=== PATIENT | female | born 1960 | race Hispanic/Latino ===

== ENCOUNTER 2023-05-29 07:35 | Emergency (ER) | payer OTHER ==
[2023-05-29] MEDS ORDERED: Ipratropium Bromide 2.5 ml Neb ONE (08:37)
[2023-05-29] MEDS ORDERED: Albuterol 2.5 MG/0.5 ML NEB ONE (08:37)
[2023-05-29] MEDS ORDERED: Sodium Chloride 0.9% 100 ML ONE (08:38)
[2023-05-29] MEDS ORDERED: Cefepime 2 GM VIAL ONE (08:38)
[2023-05-29] MEDS ORDERED: Dexamethasone 10 MG/ML VIAL ONE (08:38)
[2023-05-29 09:08] LABS: #Basophils 0.1 thou/uL (0.0-0.2); #Eosinphils 1.1 thou/uL (0.0-0.7); #Monocytes 0.7 thou/uL (0.11-0.59); #Neutrophils 3.7 thou/uL (1.40-6.50); %Basophils 1.3 % (0.0-1.0); %Eosinophils 14.1 % (0.0-10.0); %Lymphocytes 29.3 % (21.0-51.0); %Monocytes 8.4 % (0.0-10.0); %Neutrophils 46.8 % (42.0-75.0); Hematocrit 36.9 % (36.0-47.0); Hemoglobin 12.6 g/dL (12.0-16.0); Mean Corpuscular HGB CONC 34.1 g/dL (32.0-36.0); Mean Corpuscular Hemoglobin 29.4 pg (27.0-31.0); Mean Corpuscular Volume 86.2 fl (78.0-98.0); Mean Platelet Volume 10.7 fL (7.4-10.4); Platelet Count 317 10x3/uL (130-400); RBC Distribution Width 12.8 % (11.5-14.5); Red Blood Cell (RBC) Count 4.28 mill/uL (4.20-5.40); White Blood Cell (WBC) Count 7.9 10x3/uL (4.8-10.8)
[2023-05-29 09:41] LABS: ALT (SGPT) 11 U/L (8-55); AST (SGOT) 10 U/L (5-34); Albumin 4.4 g/dL (3.4-4.8); Alkaline Phosphatase 104 U/L (40-110); Anion Gap 16 mmol/L (10-20); BUN (Urea Nitrogen) 10 mg/dL (9.8-20.1); Bilirubin, Total 0.5 mg/dL (0.2-1.2); Calc. Creatinine Clearance 0 mL/min (70-130); Calcium 9.3 mg/dL (7.8-10.44); Carbon Dioxide 22 mmol/L (23-31); Chloride 104 mmol/L (98-107); Estimated GFR 80; Globulin 3.2 g/dL (2.4-3.5); Glucose 273 mg/dL (80-115); Potassium 3.9 mmol/L (3.5-5.1); Protein, Total 7.6 g/dL (5.8-8.1); Sodium 138 mmol/L (136-145)
== END 2023-05-29 10:20 | disposition home or self-care (01) ==
LOC: ERS 07:35
DX: J18.9 Pneumonia, unspecified organism (principal); E11.9 Type 2 diabetes mellitus without complications
CPT/HCPCS: 71045; 80053; 83605; 85025; 96365; 96375; J0692; J1100; J3490; J7611

== ENCOUNTER 2024-05-19 06:14 | Observation (INO) | payer OTHER ==
[2024-05-19 07:07] LABS: #Basophils 0.07 10x3/uL (0.0-0.2); %Basophils 0.7 % (0.0-1.0); %Eosinophils 4.4 % (0.0-10.0); %Lymphocytes 38.8 % (21.0-51.0); %Monocytes 8.2 % (0.0-10.0); %Neutrophils 47.6 % (42.0-75.0); Hematocrit 36.2 % (36.0-47.0); Hemoglobin 12.3 g/dL (12.0-16.0); Mean Corpuscular Hemoglobin 29.6 pg (27.0-31.0); Mean Platelet Volume 10.1 fL (7.4-10.4); Platelet Count 315 10x3/uL (130-400); RBC Distribution Width 12.9 % (11.5-14.5); Red Blood Cell (RBC) Count 4.16 mill/uL (4.20-5.40)
[2024-05-19 07:22] LABS: ALT (SGPT) 11 U/L (8-55); AST (SGOT) 10 U/L (5-34); Albumin 3.7 g/dL (3.4-4.8); Alkaline Phosphatase 115 U/L (40-110); Anion Gap 12 mmol/L (10-20); BUN (Urea Nitrogen) 12 mg/dL (9.8-20.1); Bilirubin, Total 0.3 mg/dL (0.2-1.2); Calc. Creatinine Clearance 0 mL/min (70-130); Calcium 9.1 mg/dL (7.8-10.44); Carbon Dioxide 23 mmol/L (23-31); Chloride 108 mmol/L (98-107); Estimated GFR 91; Globulin 3.7 g/dL (2.4-3.5); Glucose 204 mg/dL (80-115); Potassium 4.1 mmol/L (3.5-5.1); Protein, Total 7.4 g/dL (5.8-8.1); Sodium 139 mmol/L (136-145)
[2024-05-19 07:24] LABS: INR-International Normal Ratio 0.9; Prothrombin Time 12.1 sec (12.0-14.7)
[2024-05-19 07:25] LABS: PTT 35.7 sec (22.9-36.1)
[2024-05-19 07:26] LABS: Troponin I Less than 0.010 ng/mL (< 0.028)
[2024-05-19] MEDS ORDERED: Ondansetron PF 4 MG/2 ML Vial IVP PRN (08:27)
[2024-05-19] MEDS ORDERED: Senokot S 8.6-50 MG TAB PO PRN (08:27)
[2024-05-19] MEDS ORDERED: Aspirin Chewable 81 MG TAB ONE (08:33)
[2024-05-19] MEDS ORDERED: Dextrose 5% in Water 1,000 ML IV PRN (08:39)
[2024-05-19] MEDS ORDERED: Dextrose 50% Abboject 50 ML SYRINGE SLOW IVP PRN (08:39)
[2024-05-19] MEDS ORDERED: Glucagon 1 MG/ML KIT IM PRN (08:39)
[2024-05-19 10:28] VITALS: BMI 32.5
[2024-05-19] MEDS: Enoxaparin 40 MG (0.4 mL) SYRINGE SC SCH (11:10)
[2024-05-19] MEDS: Insulin Regular, Human 100 UNIT/ML 10 ML VIAL SC PRN (12:40)
[2024-05-19] MEDS ORDERED: Iopamidol-370 76% 500 ML MDV (1 ML CHARGE) ONE (13:31)
[2024-05-19] MEDS: Acetaminophen 325 MG TAB PO PRN (13:48)
[2024-05-19] MEDS: Lorazepam 2 MG/ML VIAL SLOW IVP PRN (16:31)
[2024-05-19 16:58] VITALS: BP 127/76; TEMP 97
[2024-05-20] MEDS ORDERED: Enoxaparin 40 MG (0.4 mL) SYRINGE SC SCH (09:00)
== END 2024-05-19 19:20 | disposition home or self-care (01) ==
LOC: ERS 06:14 → 2SE 10:12
PROVIDERS: ADMIT Hospitalist; ATTEND Hospitalist
DX: R29.818 Other symptoms and signs involving the nervous system (principal); R20.0 Anesthesia of skin; E11.9 Type 2 diabetes mellitus without complications; I10 Essential (primary) hypertension; Z98.890 Other specified postprocedural states; Z79.84 Long term (current) use of oral hypoglycemic drugs; Z79.4 Long term (current) use of insulin; Z79.899 Other long term (current) drug therapy
CPT/HCPCS: 0042T; 36416; 70450; 70496; 70498; 70551; 71045; 80053; 84484; 85025; 85610; 85730; 93005; 96372; 96374; G0378; J1650; J1815; J2060; Q9967